=== PATIENT | female | born 1985 | race African-American/Black ===

== ENCOUNTER 2024-10-07 16:24 | Day surgery (SDC) | payer MEDICAID ==
[2024-10-07 17:05] VITALS: BMI 27.6
[2024-10-07 18:28] LABS: Glucose, Urine (Dipstick) Normal (Negative); Leukocyte 100 (Negative); Protein, Urine (Dipstick) Negative (Neg-Trace); Specific Gravity, Urine 1.010 (1.005-1.030)
[2024-10-07] MEDS: Acetaminophen 500 MG TAB PO SCH (19:30)
[2024-10-07 19:33] LABS: Bacteria/HPF 1+ HPF (None Seen); CAUTI Indications for Culture Pregnancy; RBC/HPF 0-3 HPF (0-3)
[2024-10-07 19:35] LABS: Urine Culture Reflex Yes Yes
[2024-10-07 19:36] LABS: Cocaine Metabolite Screen Negative (Negative); THC/Cannabinoid Screen Negative (Negative); Tricyclic Screen Negative (Negative)
[2024-10-07] MEDS: Fosfomycin 3 GM/Packet PO SCH (20:05)
== END 2024-10-07 20:18 | disposition home or self-care (01) ==
LOC: CSHLD/OP 16:24
PROVIDERS: ATTEND Obstetrics & Gynecology
DX: O23.13 Infections of bladder in pregnancy, third trimester (principal); N30.90 Cystitis, unspecified without hematuria; O09.523 Supervision of elderly multigravida, third trimester; Z3A.38 38 weeks gestation of pregnancy; Z88.2 Allergy status to sulfonamides
CPT/HCPCS: 76815; 76819; 80306; 81001; 87077; 87086; 99285

== ENCOUNTER 2024-10-24 03:21 | Inpatient (IN) | payer MEDICAID ==
[2024-10-24] MEDS ORDERED: Ibuprofen 800 MG TAB PO PRN (03:40)
[2024-10-24] MEDS ORDERED: Acetaminophen 500 MG TAB PO PRN (03:40)
[2024-10-24] MEDS ORDERED: Lidocaine 1% (PF) 30 ML VIAL SC PRN (03:40)
[2024-10-24] MEDS ORDERED: Carboprost 250 MCG/ML AMP IM PRN (03:40)
[2024-10-24] MEDS ORDERED: Diphenoxylate HCl/Atropine Tablet PO PRN ×2 (03:40)
[2024-10-24] MEDS ORDERED: Methylergonovine 0.2 MG/ML VIAL IM PRN ×2 (03:40→08:55)
[2024-10-24] MEDS ORDERED: Ondansetron PF 4 MG/2 ML Vial IVP PRN ×2 (03:40→04:35)
[2024-10-24] MEDS ORDERED: Tranexamic Acid 1,000 MG/10 ML VIAL IVP PRN (03:40)
[2024-10-24] MEDS ORDERED: hydrALAZINE 20 MG/ML VIAL SLOW IVP PRN ×2 (03:40→08:55)
[2024-10-24] MEDS ORDERED: Oxytocin 30 units/NS 500 ML 500 ML IV SCH ×2 (03:45→09:00)
[2024-10-24 03:57] LABS: Hematocrit 31.1 % (34.9-44.5); Hemoglobin 10.2 g/dL (12.0-15.5); Mean Corpuscular Hemoglobin 26.0 pg (27.0-33.0); Mean Corpuscular Volume 79.3 fL (81.6-98.3); Platelet Count 260 10x3/uL (150-450); Red Blood Cell (RBC) Count 3.92 10x6/uL (3.90-5.03); White Blood Cell (WBC) Count 10.28 10x3/uL (3.5-10.5)
[2024-10-24 04:31] LABS: Hep B Surf Ag - L&D Non-Reactive S/CO (NonReactive)
[2024-10-24 04:32] LABS: Syphilis Antibody Index 0.09 S/CO (<1.00 Non-Reactive)
[2024-10-24] MEDS: fentaNYL 2 mcg/Ropivacaine 0.2% Epidural 100 ML CADD EPIDURAL SCH (04:35)
[2024-10-24] MEDS ORDERED: diphenhydrAMINE 50 MG/ML VIAL IVP PRN (04:35)
[2024-10-24 04:44] VITALS: BMI 28.2
[2024-10-24] MEDS ORDERED: Benzocaine-Menthol 82.5 ML CAN TOP PRN (08:55)
[2024-10-24] MEDS ORDERED: Bisacodyl 10 MG SUPP PR PRN (08:55)
[2024-10-24] MEDS ORDERED: Milk Of Magnesia 30 ML UDCUP PO PRN (08:55)
[2024-10-24] MEDS ORDERED: Preparation H Ointment 28 GM TUBE PR PRN (08:55)
[2024-10-24] MEDS ORDERED: Lanolin Ointment 7 GM TUBE TOP PRN (08:55)
[2024-10-24] MEDS: Acetaminophen 325 MG TAB PO PRN (12:42)
[2024-10-24] MEDS: Ibuprofen 800 MG TAB PO SCH (14:30)
[2024-10-24] MEDS: fentaNYL/Ropivacaine Epidural 100 ML ONE (16:01)
[2024-10-24] MEDS: Ferrous Sulfate 325 MG TAB PO SCH (17:30)
[2024-10-24] MEDS: HYDROcodone/Acetaminophen 5/325 mg Tablet PO PRN (19:56)
[2024-10-25] MEDS ORDERED: HYDROcodone/Acetaminophen 5/325 mg Tablet PO PRN (03:58)
[2024-10-25] MEDS: Boostrix 0.5 ML (Tdap) VIAL (>/=7 yrs of age) IM ONE (07:48)
[2024-10-25] MEDS: HYDROcodone/Acetaminophen 5/325 mg Tablet PO SCH (12:22)
[2024-10-26] MEDS: HYDROcodone/Acetaminophen 5/325 mg Tablet PO SCH (01:49)
[2024-10-26 09:00] VITALS: BP 123/79; TEMP 98.4
== END 2024-10-26 12:30 | disposition home or self-care (01) | DRG 806 ==
LOC: CSHLD/OP 03:21 → CSHLD 03:54 → CSHPP 11:15
PROVIDERS: ADMIT Family Medicine; ATTEND Family Medicine
PROC: 10E0XZZ Delivery of Products of Conception, External Approach (ICD-10-PCS; principal; 2024-10-24)
PROC: 10907ZC Drainage of Amniotic Fluid, Therapeutic from Products of Conception, Via Natural or Artificial Opening (ICD-10-PCS; 2024-10-24)
DX: O99.02 Anemia complicating childbirth (principal); D62 Acute posthemorrhagic anemia; Z37.0 Single live birth; O48.0 Post-term pregnancy; Z88.2 Allergy status to sulfonamides; Z3A.40 40 weeks gestation of pregnancy; K59.00 Constipation, unspecified; O99.893 Other specified diseases and conditions complicating puerperium
CPT/HCPCS: 36415; 51702; 85027; 86780; 86850; 86900; 86901; 87340

== ENCOUNTER 2025-01-18 19:17 | Emergency (ER) | payer MEDICAID ==
[2025-01-18 19:56] LABS: Glucose, Urine (Dipstick) Normal (Negative); Leukocyte 100 (Negative); Protein, Urine (Dipstick) Negative (Neg-Trace); Specific Gravity, Urine 1.015 (1.005-1.030)
[2025-01-18 19:58] LABS: Pregnancy Test - Urine (BHCG) Negative (Negative); Pregu Control Background? CLEAR/WHITE (CLR/WHITE); Pregu Control Bar Appear? YES (CONTROL BAR)
[2025-01-18 20:25] LABS: Bacteria/HPF 1+ HPF (None Seen); CAUTI Indications for Culture Pelvic or flank pain; Mucous/LPF 1+ LPF (<2+); RBC/HPF None Seen HPF (0-3); Urine Culture Reflex No No
[2025-01-18] MEDS ORDERED: Ketorolac Tromethamine 30 MG (1 mL) VIAL ONE (20:52)
[2025-01-18] MEDS ORDERED: Acetaminophen 500 MG TAB ONE (20:52)
[2025-01-18] MEDS ORDERED: Dexamethasone 10 MG/ML VIAL ONE (20:52)
== END 2025-01-18 23:11 | disposition home or self-care (01) ==
LOC: CSHERS 19:17
DX: N39.0 Urinary tract infection, site not specified (principal); B96.89 Other specified bacterial agents as the cause of diseases classified elsewhere; N90.89 Other specified noninflammatory disorders of vulva and perineum
CPT/HCPCS: 72100; 81001; 81025; 87480; 87510; 87660; 96372; 99283; J1100; J1885

== ENCOUNTER 2025-01-21 20:53 | Emergency (ER) | payer MEDICAID ==
[2025-01-21] MEDS ORDERED: Ketorolac Tromethamine 30 MG (1 mL) VIAL ONE (21:44)
[2025-01-21 22:09] LABS: #Basophils 0.05 10x3/uL (0.0-0.2); #Eosinophils 1.47 10x3/uL (0.0-0.5); #Monocytes 0.59 10x3/uL (0.0-1.1); #Neutrophils 3.89 10x3/uL (1.5-8.4); %Basophils 0.6 % (0.0-2.0); %Eosinophils 18.6 % (0.0-6.0); %Lymphocytes 23.9 % (18.0-47.0); %Monocytes 7.5 % (0.0-10.0); %Neutrophils 49.1 % (40.0-75.0); Hematocrit 33.5 % (34.9-44.5); Hemoglobin 11.5 g/dL (12.0-15.5); Mean Corpuscular Hemoglobin 29.4 pg (27.0-33.0); Mean Corpuscular Volume 85.7 fL (81.6-98.3); Platelet Count 318 10x3/uL (150-450); Red Blood Cell (RBC) Count 3.91 10x6/uL (3.90-5.03); White Blood Cell (WBC) Count 7.91 10x3/uL (3.5-10.5)
[2025-01-21 22:25] LABS: ALT (SGPT) 14 U/L (Less than 34); AST (SGOT) 18 U/L (11-34); Albumin 3.4 g/dL (3.1-4.5); Alkaline Phosphatase 45 U/L (40-110); Anion Gap 15 mmol/L (10-20); BUN (Urea Nitrogen) 29 mg/dL (7.0-18.7); Bilirubin, Total 0.1 mg/dL (0.3-1.2); Calc. Creatinine Clearance 0 mL/min (70-130); Calcium 7.8 mg/dL (7.8-10.44); Carbon Dioxide 19 mmol/L (22-29); Chloride 110 mmol/L (98-107); Globulin 2.7 g/dL (2.4-3.5); Glucose 86 mg/dL (70-105); Lipase 39 U/L (8-78); Potassium 4.5 mmol/L (3.5-5.1); Sodium 139 mmol/L (136-145)
[2025-01-22 01:00] LABS: Glucose, Urine (Dipstick) Normal (Negative); Leukocyte Negative (Negative); Protein, Urine (Dipstick) Negative (Neg-Trace); Specific Gravity, Urine 1.015 (1.005-1.030)
[2025-01-22 01:07] LABS: Bacteria/HPF None Seen HPF (None Seen); CAUTI Indications for Culture Dysuria,urgency,freq; RBC/HPF None Seen HPF (0-3); WBC/HPF None Seen HPF (0-3)
[2025-01-22 01:08] LABS: Urine Culture Reflex No No
[2025-01-22] MEDS ORDERED: Acetaminophen 500 MG TAB ONE (01:09)
== END 2025-01-22 01:13 | disposition home or self-care (01) ==
LOC: CSHERS 20:53
DX: M54.50 Low back pain, unspecified (principal); N28.9 Disorder of kidney and ureter, unspecified; K80.20 Calculus of gallbladder without cholecystitis without obstruction
CPT/HCPCS: 74176; 80053; 81001; 83690; 85025; 96374; J1885